=== PATIENT | male | born 1970 | race Caucasian/White ===

== ENCOUNTER 2018-04-06 14:08 | Day surgery (SDC) | payer MEDICAID ==
[2018-04-06] MEDS ORDERED: LIDOCAINE 2% (SDV) 5 ML INJ (17:17)
[2018-04-06] MEDS ORDERED: PROPOFOL 20 ML (17:17)
== END 2018-04-06 18:41 | disposition home or self-care (01) ==
LOC: GIL 14:08
DX: Z12.11 Encounter for screening for malignant neoplasm of colon (principal); K64.8 Other hemorrhoids; J45.909 Unspecified asthma, uncomplicated
CPT/HCPCS: 45378